=== PATIENT | female | born 1955 ===

== ENCOUNTER 2018-10-24 11:12 | Outpatient (CLI) | payer OTHER | END 2018-10-24 11:46 | disposition home or self-care (01) | LOC: LAB 11:12 | DX: R31.21 Asymptomatic microscopic hematuria (principal); Z51.81 Encounter for therapeutic drug level monitoring ==

== ENCOUNTER 2018-10-26 08:13 | Outpatient (CLI) | payer OTHER | END 2018-10-26 08:41 | disposition home or self-care (01) | LOC: TOM 08:13 | DX: R31.21 Asymptomatic microscopic hematuria (principal) ==